=== PATIENT | female | born 1940 | race Caucasian/White ===

== ENCOUNTER 2018-06-14 05:54 | Day surgery (SDC) | payer MEDICARE, OTHER ==
[2018-06-14] MEDS ORDERED: DIPRIVAN 200 MG/20 ML IV ONE (05:55)
[2018-06-14] MEDS ORDERED: Ketamine HCl 50 MG/ML IJ ONE (05:55)
[2018-06-14] MEDS ORDERED: Lactated Ringers 1,000 ML IV SCH (06:30)
[2018-06-14] MEDS ORDERED: Lactated Ringers 1,000 ML IV ONE (07:36)
[2018-06-14 09:11] VITALS: O2SAT 99
[2018-06-14 09:15] VITALS: BP 154/63; PULSE 63
--- NOTE | 2018-06-14 12:57 | OP ---
SURGERY DATE/TIME: 06/14/2018 0723 PREOPERATIVE DIAGNOSIS: Screening exam. POSTOPERATIVE DIAGNOSIS: Normal colon. PROCEDURE: Colonoscopy. SURGEON: Dr. Ward. ANESTHESIA: MAC. Medications given by anesthesia department. HISTORY: The patient is a 77 year-old white female presenting now for colonoscopy. It has been ten years since her previous examination. She was reappraised of the risks of the procedure including the risk of perforation, phlebitis, untoward reaction to medication, bleeding and missed lesions. The patient verbalized her understanding and desired to have the procedure performed. DESCRIPTION OF PROCEDURE: The patient was given the medications by the anesthesia department. She had continuous pulse oximetry, ECG monitoring, intermittent blood pressure monitoring and tidal CO2 monitoring during the examination. She was placed in the left lateral decubitus position. A digital rectal examination was performed and revealed normal anal sphincter tone and no masses. The flexible Olympus pediatric colonoscope was used to intubate the rectum. A view of the colon was developed sequentially to the cecum. Upon insertion and withdrawal, including a retroflex view in the rectum, no mucosal lesions were encountered. The scope was removed from the patient who tolerated the procedure well and was sent back to OP recovery in good condition. The prep was noted to be fair to good.
== END 2018-06-14 09:00 | disposition home or self-care (01) ==
LOC: SDC 05:54
PROVIDERS: ATTEND Family Medicine
DX: Z12.11 Encounter for screening for malignant neoplasm of colon (principal)
CPT/HCPCS: 99100; J2704

== ENCOUNTER 2020-01-12 15:31 | Emergency (ER) | payer OTHER, MEDICARE ==
--- NOTE | 2020-01-12 16:23 | XRAY ---
Indication: Right neck pain following fall. Multiple contiguous axial images obtained through the cervical spine. Sagittal and coronal reformatted images obtained. Comparison: None Axial images negative for acute fracture, suspicious for lesions, or spinal canal stenosis. Minimal C4-C6 degenerative endplate spurring. Sagittal and coronal reformatted images demonstrates minimal lordotic straightening and mild C4-C6 disc space narrowing. No acute compression fracture, subluxation, or jumped facet. Normal appearing craniocervical junction. Visualized noncontrasted soft tissues demonstrates minimal bilateral carotid calcifications. Lung apices unremarkable. Impression: 1. Negative acute fracture/subluxation. 2. C4-C6 degenerative changes.
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
--- NOTE | 2020-01-12 16:26 | XRAY ---
Indication: Pain following fall. Multiple contiguous axial images obtained through the head without contrast. Comparison: December 24, 2015. There is age-appropriate global atrophy and minimal periventricular degenerative micro-ischemia bilaterally. New finding 9mm focus old infarct left mid colon radiata and old lacunar infarct posterior left basal ganglia. No acute intracranial hemorrhage, abnormal extra-axial fluid collection, or mass effect. Fourth ventricle is midline without hydrocephalus. Aragon-white matter differentiation preserved. Bony calvarium intact. Visualized paranasal sinuses and master cells are clear. Impression: 1. Atrophy and degenerative micro-ischemia within normal limits for patient's age. 2. New findings small old infarct left colon radiata and old lacunar infarct left basal ganglia. 3. No acute intracranial abnormalities.
--- NOTE | 2020-01-12 16:50 | XRAY ---
Indication: Pain following fall. Comparison: None 3 view right knee demonstrates tiny superior patella heterotopic ossification either degenerative versus old injury. No other bony, articular, or soft tissue abnormalities.
--- NOTE | 2020-01-12 16:50 | XRAY ---
Indication: Pain following fall. Comparison: None 3 view left hand demonstrates mild degenerative changes all IP joints and 1.7 mm soft tissue calcification/granuloma adjacent to mid 1st metacarpal. No other bony, articular, or soft tissue abnormalities.
--- NOTE | 2020-01-12 16:52 | XRAY ---
Indication: Pain following fall. Comparison: None 3 view right hand demonstrates moderate/advanced degenerative changes 1st IP joint. No other bony, articular, or soft tissue abnormalities.
[2020-01-12 17:10] VITALS: BP 139/78; PULSE 58
[2020-01-12 19:11] VITALS: O2SAT 97
== END 2020-01-12 17:16 | disposition home or self-care (01) ==
LOC: ED 15:31
DX: S16.1XXA Strain of muscle, fascia and tendon at neck level, initial encounter (principal); S80.02XA Contusion of left knee, initial encounter; S80.01XA Contusion of right knee, initial encounter; S60.222A Contusion of left hand, initial encounter; S60.221A Contusion of right hand, initial encounter; R51.9 Headache, unspecified; M54.2 Cervicalgia; S80.211A Abrasion, right knee, initial encounter; W22.8XXA Striking against or struck by other objects, initial encounter; Y93.01 Activity, walking, marching and hiking; Y92.481 Parking lot as the place of occurrence of the external cause
CPT/HCPCS: 70450; 72125; 73130; 73562; 99284

== ENCOUNTER 2020-09-25 22:14 | Emergency (ER) | payer MEDICARE, OTHER ==
--- NOTE | 2020-09-25 22:19 | ERPHSYRPT ---
- History of Present Illness Time Seen by Provider: 09/25/20 22:19 Source: patient, EMS Exam Limitations: clinical condition Physician History: This is a 79-year-old white female who had back surgery recently was placed on narcotic pain medicine in the postoperative period. Patient has not had a bowel movement in several days. It is felt that her constipation is secondary to narcotic use. She is taking her medication as prescribed. However, in the last 3 days she felt rectal and perianal pain and pressure and stopped taking her narcotics. She has not been on her narcotics in the last 3 days. She has no nausea vomiting. She has no abdominal pain. She has been taking Dulcolax oral tablets and has had fleets suppository use earlier today. Severity: moderate Associated Symptoms: other (Constipation), No nausea, No vomiting, No abdominal pain, No shortness of breath, No chest pain Allergies/Adverse Reactions: acetaminophen [From Vicodin] Adverse Reaction (Mild, Verified 09/25/20 22:16) Vomiting codeine Adverse Reaction (Mild, Verified 09/25/20 22:16) Vomiting hydrocodone bitartrate [From Vicodin] Adverse Reaction (Mild, Verified 09/25/20 22:16) Vomiting Home Medications: Amlodipine Besylate [Norvasc] 2.5 mg PO QHS 05/31/18 [History] Cetirizine HCl [Zyrtec] 10 mg PO DAILY 05/31/18 [History] Clopidogrel Bisulfate 75 mg [PLAVIX 75 MG Tablet] 75 mg PO DAILY 05/31/18 [History] Levothyroxine Sodium 100 Mcg [Synthroid 100 Mcg] 100 mcg PO DAILY 05/31/18 [History] Irbesartan 1 tab PO DAILY 01/12/20 [History] Hx Tetanus, Diphtheria Vaccination/Date Given: No Hx Influenza Vaccination/Date Given: Yes Hx Pneumococcal Vaccination/Date Given: No Travel Risk - International Travel Have you traveled outside of the country in past 3 weeks: No - Coronavirus Screening Are you exhibiting any of the following symptoms?: No Close contact with a COVID-19 positive Pt in past 14-21 Days: No - Review of Systems Constitutional: No Symptoms Eyes: No Symptoms Ears, Nose, & Throat: No Symptoms Respiratory: Stridor Cardiac: No Symptoms Abdominal/Gastrointestinal: Constipation, No Abdominal Pain, No Nausea, No Vomiting, No Diarrhea Genitourinary Symptoms: No Symptoms Musculoskeletal: No Symptoms Skin: No Symptoms Neurological: No Symptoms Psychological: No Symptoms Endocrine: No Symptoms Hematologic/Lymphatic: No Symptoms Immunological/Allergic: No Symptoms All Other Systems: Reviewed and Negative - Past Medical History Pertinent Past Medical History: Yes Neurological History: Peripheral Neuropathy, Stroke ENT History: Cataracts Cardiac History: Hypertension Respiratory History: No Pertinent History Endocrine Medical History: Hypothyroidism Musculoskeletal History: Osteoarthritis GI Medical History: GERD History: No Pertinent History Psycho-Social History: No Pertinent History Female Reproductive Disorders: No Pertinent History Other Medical History: CVA WITH R SIDE EFFECT IN 04/23/2018, HTN, BACK SURGERY [address] MARTINEZ. PT NOTES SOMETHING WAS DONE TO l4-5, BUT NOT SURE WHAT. - Past Surgical History Past Surgical History: Yes Neuro Surgical History: No Pertinent History Cardiac: No Pertinent History Respiratory: No Pertinent History Gastrointestinal: No Pertinent History Genitourinary: No Pertinent History Musculoskeletal: Orthopedic Surgery Female Surgical History: Hysterectomy Other Surgical History: Back Surgery. Carpal tunnel. Rotator Cuff surgery - Social History Smoking Status: Never smoker Exposure to second hand smoke: No Alcohol Use: None Drug Use: none Patient Lives Alone: Yes Significant Family History: no pertinent family hx - Nursing Vital Signs Nursing Vital Signs: Initial Vital Signs Temperature 98 F 09/25/20 22:16 Pulse Rate 56 L 09/25/20 22:16 Respiratory Rate 16 09/25/20 22:16 Blood Pressure 111/55 09/25/20 22:16 O2 Sat by Pulse Oximetry 99 09/25/20 22:16 Pain Scale Pain Intensity 10 - Physical Exam General Appearance: mild distress, alert, anxiety Eye Exam: PERRL/EOMI, eyes nml inspection Ears, Nose, Throat Exam: normal ENT inspection, moist mucous membranes Neck Exam: normal inspection, non-tender, supple, full range of motion Respiratory Exam: airway intact, No chest tenderness, No respiratory distress Cardiovascular Exam: regular rate/rhythm, normal heart sounds, normal peripheral pulses Gastrointestinal/Abdomen Exam: soft, normal bowel sounds, No tenderness Pelvic Exam: not done Rectal Exam: other (No digital rectal exam performed at this time. There are swollen external hemorrhoids present.) Extremity Exam: normal inspection, normal range of motion, pelvis stable Neurologic Exam: alert, oriented x 3, cooperative, sat tutor II-XII nml as tested, normal mood/affect Skin Exam: normal color, warm, dry Lymphatic Exam: No adenopathy SpO2 Interpretation: normal O2 Delivery: Room Air Ordered Tests: Active Orders 24 hr Category Date Time Status Enema STAT Care 09/25/20 23:06 Active - Progress Progress: improved, pain not gone completely Progress Note: 09/26/20 00:33 Medical decision making: Patient had minimal response to the soapsuds enema. Digital disimpaction was performed and large amount of hard stool was removed followed by softer stool. Patient commented that her pain and pressure in the rectal area was significantly less. Counseled pt/family regarding: diagnosis, need for follow-up, rad results - Departure Departure Disposition: Home Clinical Impression: Fecal impaction in rectum Condition: Stable Critical Care Time: No Referrals: MADISYN FIERRO [Primary Care Provider] - Additional Instructions: Drink plenty of fluids. Be as active as possible. This morning, when you get home, drink the full bottle of magnesium citrate orally and rapidly. Wait approximately half hour to 45 minutes and give yourself a fleets enema rectally. Purchase the product MiraLAX that is [id number] and follow the directions. Follow-up with your primary care doctor for bowel hygiene regimen. Avoid narcotic pain medication.
[2020-09-26 00:32] VITALS: BP 124/73; PULSE 55; O2SAT 100
[2020-09-26] MEDS ORDERED: CITROMA 296 ML ONE (00:34)
[2020-09-26] MEDS ORDERED: CITROMA 296 ML PO ONE (00:35)
== END 2020-09-26 00:47 | disposition home or self-care (01) ==
LOC: ED 22:14
DX: K56.41 Fecal impaction (principal)
CPT/HCPCS: 99283; A9270-GY

== ENCOUNTER 2022-08-29 12:54 | Emergency (ER) | payer MEDICARE, OTHER ==
--- NOTE | 2022-08-29 12:59 | ERPHSYRPT ---
- History of Present Illness Time Seen by Provider: 08/29/22 12:59 Source: patient Exam Limitations: no limitations Physician History: This is an 81-year-old white female patient of Dr. Ward who presents with dizziness and nausea when she woke up this morning. Symptoms are still present. 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 Patient is able to ambulate. She has had no changes in her vision. She has had no changes in her speech. She has no abdominal pain. Patient has a history of hypertension, hypothyroidism, peripheral neuropathy and gastroesophageal reflux disease. Patient denies chest pain and she denies shortness of breath. Patient is on Plavix Timing/Duration: today Severity: mild Character of Deficits: none Deficits: no difficulties Baseline/Normal Cognition: alert oriented x 3 Current Cognition: alert oriented x 3 Baseline Gait: walks w/o assistance Associated Symptoms: nausea, other, No loss of consciousness, No vomiting, No chest pain Allergies/Adverse Reactions: acetaminophen [From Vicodin] Adverse Reaction (Mild, Verified 08/29/22 13:40) Vomiting codeine Adverse Reaction (Mild, Verified 08/29/22 13:40) Vomiting hydrocodone bitartrate [From Vicodin] Adverse Reaction (Mild, Verified 08/29/22 13:40) Vomiting Home Medications: Cetirizine HCl [Zyrtec] 10 mg PO DAILY 05/31/18 [History] Clopidogrel Bisulfate [PLAVIX Tablet] 75 mg PO DAILY 05/31/18 [History] Levothyroxine Sodium 100 Mcg [Synthroid 100 Mcg] 75 mcg PO DAILY 05/31/18 [History] Irbesartan 30 mg PO DAILY 01/12/20 [History] Alpha Lipoic Acid 300 mg PO DAILY 08/29/22 [History] Aspirin [Low Dose Aspirin EC] 81 mg PO 3XW 08/29/22 [History] Biotin 1 tab PO DAILY 08/29/22 [History] Calcium Carbonate [Calcium] 650 mg PO DAILY 08/29/22 [History] Magnesium Oxide [Magnesium] 500 mg PO DAILY 08/29/22 [History] PANTOPRAZOLE 40 mg Tablet [Protonix 40MG Tablet] 40 mg PO BID 08/29/22 [History] Vit C/E/Zn/Coppr/Lutein/Zeaxan [Preservision Areds 2 Chew Tab] 1 tab PO BID 08/29/22 [History] Hx Tetanus, Diphtheria Vaccination/Date Given: No Hx Influenza Vaccination/Date Given: Yes Hx Pneumococcal Vaccination/Date Given: No Travel Risk - International Travel Have you traveled outside of the country in past 3 weeks: No - Coronavirus Screening Are you exhibiting any of the following symptoms?: No Close contact with a COVID-19 positive Pt in past 14-21 Days: No - Vaccine Status Have you recieved a Covid-19 vaccination: Yes 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: [employer] - Vaccination Dates Date of 2cond Vaccination (if applicable): 06/10 - Review of Systems Constitutional: No Symptoms Eyes: No Symptoms Ears, Nose, & Throat: No Symptoms Respiratory: No Symptoms Cardiac: No Symptoms Abdominal/Gastrointestinal: Nausea, No Abdominal Pain, No Vomiting, No Diarrhea, No Constipation Genitourinary Symptoms: No Symptoms Musculoskeletal: No Symptoms Skin: No Symptoms Neurological: Dizziness Psychological: No Symptoms Endocrine: No Symptoms Hematologic/Lymphatic: No Symptoms Immunological/Allergic: No Symptoms All Other Systems: Reviewed and Negative - Past Medical History Pertinent Past Medical History: Yes Neurological History: Peripheral Neuropathy, Stroke ENT History: Cataracts Cardiac History: Hypertension Respiratory History: Asthma Endocrine Medical History: No Pertinent History Musculoskeletal History: No Pertinent History GI Medical History: GERD History: No Pertinent History Psycho-Social History: No Pertinent History Female Reproductive Disorders: No Pertinent History Other Medical History: CVA WITH R SIDE INVOLVEMENT 3 YEARS AGO. - Past Surgical History Past Surgical History: Yes Neuro Surgical History: No Pertinent History Cardiac: No Pertinent History Respiratory: No Pertinent History Gastrointestinal: No Pertinent History Genitourinary: No Pertinent History Musculoskeletal: Orthopedic Surgery Female Surgical History: Hysterectomy Other Surgical History: Back Surgery. Carpal tunnel. Rotator Cuff surgery - Social History Smoking Status: Never smoker Exposure to second hand smoke: No Alcohol Use: None Drug Use: none Patient Lives Alone: Yes Significant Family History: no pertinent family hx - Nursing Vital Signs Nursing Vital Signs: Initial Vital Signs Blood Pressure 163/79 08/29/22 13:03 O2 Sat by Pulse Oximetry 98 08/29/22 13:03 Pain Scale Pain Intensity 0 - Vinicius Coma Scale Best Eye Response ([place]): (4) open spontaneously Best Verbal Response ([place]): (5) oriented Best Motor Response ([place]): (6) obeys commands Vinicius Total: 15 - Physical Exam General Appearance: no apparent distress, alert, anxiety Eye Exam: bilateral eye: normal inspection, PERRL, EOMI Ears, Nose, Throat Exam: normal ENT inspection, moist mucous membranes Neck Exam: normal inspection, non-tender, supple, full range of motion Respiratory: normal breath sounds, lungs clear, airway intact, No chest tenderness, No respiratory distress Cardiovascular: regular rate/rhythm, normal heart sounds, normal peripheral pulses Gastrointestinal: soft, normal bowel sounds, No tenderness Pelvic Exam: not done Rectal Exam: not done Back Exam: normal inspection, normal range of motion, No CVA tenderness, No vertebral tenderness Extremity Exam: normal inspection, normal range of motion, pelvis stable Mental Status: alert, oriented x 3, 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 Exam: normal hearing, normal speech, PERRL, tongue midline Coordination/Gait: normal finger to nose, normal gait, normal cerebellar function Motor/Sensory: no motor deficit, no sensory deficit, no pronator drift Skin Exam: normal color, warm, dry SpO2 Interpretation: normal O2 Delivery: Room Air - Course Nursing assessment & vital signs reviewed: Yes Ordered Tests: Active Orders 24 hr Category Date Time Status Senior Project Controls Specialist STAT Care 08/29/22 13:08 Active EKG-ER Only STAT Care 08/29/22 13:07 Active IV Insertion STAT Care 08/29/22 13:07 Active NPO (ED) STAT Care 08/29/22 13:07 Active Pulse Oximetry (ED) STAT Care 08/29/22 13:07 Active HEAD WITHOUT CONTRAST [CT] Stat Exams 08/29/22 13:08 Completed CBC W DIFF Stat Lab 08/29/22 13:34 Completed CMP Stat Lab 08/29/22 13:34 Completed T4 (Thyroxine) Stat Lab 08/29/22 13:34 Completed TROPONIN Q4H Lab 08/29/22 13:34 Completed TROPONIN Q4H Lab 08/29/22 17:15 Ordered TROPONIN Q4H Lab 08/29/22 21:15 Ordered TSH, 3RD Generation Stat Lab 08/29/22 13:34 Completed UA W/RFX UR CULTURE Stat Lab 08/29/22 12:52 Completed Medication Summary Discontinued Medications Generic Name Dose Route Start Last Admin Trade Name Freq PRN Reason Stop Dose Admin Ondansetron HCl 4 mg 08/29/22 13:08 08/29/22 13:35 Ondansetron Hcl 4 Mg/2 Ml Vial IV 08/29/22 13:09 4 mg STAT ONE Administration Ondansetron HCl Confirm 08/29/22 13:33 Ondansetron Hcl 4 Mg/2 Ml Vial Administered 08/29/22 13:34 Dose 4 mg .ROUTE .STK-MED ONE Lab/Rad Data: Laboratory Result Diagrams 08/29/22 13:34 08/29/22 13:34 Laboratory Results 08/29/22 08/29/22 08/29/22 Range/Units 13:34 13:34 13:34 WBC 6.5 (4.0-10.5) x10^3/uL RBC 4.40 (4.1-5.4) x10^6/uL Hgb 13.6 (12.0-16.0) g/dL Hct 41.8 (35-47) % MCV 95.0 (78-100) fL MCH 30.9 (26-32) pg MCHC 32.5 (32-36) g/dL RDW 13.0 (11.5-14.0) % Plt Count 241 (150-450) x10^3/uL MPV 11.6 H (7.5-11.0) fL Gran % 58.1 (36.0-66.0) % Immature Gran % (Auto) 0.5 H (0.00-0.4) % Nucleat RBC Rel Count 0.0 (0.00-0.1) % Eos # (Auto) 0.51 H (0-0.5) x10^3/uL Immature Gran # (Auto) 0.03 (0.00-0.03) x10^3u/L Absolute Lymphs (auto) 1.48 (1.0-4.6) x10^3/uL Absolute Monos (auto) 0.66 (0.0-1.3) x10^3/uL Absolute Nucleated RBC 0.00 (0.00-0.01) x10^3u/L Lymphocytes % 22.7 L (24.0-44.0) % Monocytes % 10.1 (0.0-12.0) % Eosinophils % 7.8 H (0.00-5.0) % Basophils % 0.8 (0.0-0.4) % Absolute Granulocytes 3.78 (1.4-6.9) x10^3/uL Basophils # 0.05 (0-0.4) x10^3/uL Sodium 141 (137-145) mmol/L Potassium 4.0 (3.5-5.1) mmol/L Chloride 101 (98-107) mmol/L Carbon Dioxide 29 (22-30) mmol/L Anion Gap 14.8 (5-15) MEQ/L BUN 18 H (7-17) mg/dL Creatinine 1.01 (0.52-1.04) mg/dL Estimated GFR 56.1 ML/MIN Glucose 86 (74-106) mg/dL Calcium 9.5 (8.4-10.2) mg/dL Total Bilirubin 0.80 (0.2-1.3) mg/dL AST 26 (14-36) U/L ALT 15 (0-35) U/L Alkaline Phosphatase 68 (38-126) U/L Troponin I < 0.012 (0.000-0.034) ng/mL Serum Total Protein 7.3 (6.3-8.2) g/dL Albumin 4.4 (3.5-5.0) g/dL Thyroxine (T4) 8.22 (5.53-10.96) ug/dL TSH 3rd Generation 3.960 (0.47-4.68) mIU/L Urine Color (Yellow) Urine Appearance (Clear) Urine pH (4.6-8.0) Ur Specific [place] (1.005-1.030) Urine Protein (Negative) Urine Glucose (UA) (Negative) mg/dL Urine Ketones (Negative) Urine Blood (Negative) Urine Nitrite (Negative) Urine Bilirubin (Negative) Urine Urobilinogen (0.2) mg/dL Ur Leukocyte Esterase (Negative) U Hyaline Cast (Auto) (0-2) /LPF Urine Microscopic RBC (0-5) /HPF Urine Microscopic WBC (0-5) /HPF Ur Epithelial Cells (None Seen) /HPF Urine Bacteria (None Seen) /HPF Urine Culture Reflexed (NO) 08/29/22 Range/Units 12:52 WBC (4.0-10.5) x10^3/uL RBC (4.1-5.4) x10^6/uL Hgb (12.0-16.0) g/dL Hct (35-47) % MCV (78-100) fL MCH (26-32) pg MCHC (32-36) g/dL RDW (11.5-14.0) % Plt Count (150-450) x10^3/uL MPV (7.5-11.0) fL Gran % (36.0-66.0) % Immature Gran % (Auto) (0.00-0.4) % Nucleat RBC Rel Count (0.00-0.1) % Eos # (Auto) (0-0.5) x10^3/uL Immature Gran # (Auto) (0.00-0.03) x10^3u/L Absolute Lymphs (auto) (1.0-4.6) x10^3/uL Absolute Monos (auto) (0.0-1.3) x10^3/uL Absolute Nucleated RBC (0.00-0.01) x10^3u/L Lymphocytes % (24.0-44.0) % Monocytes % (0.0-12.0) % Eosinophils % (0.00-5.0) % Basophils % (0.0-0.4) % Absolute Granulocytes (1.4-6.9) x10^3/uL Basophils # (0-0.4) x10^3/uL Sodium (137-145) mmol/L Potassium (3.5-5.1) mmol/L Chloride (98-107) mmol/L Carbon Dioxide (22-30) mmol/L Anion Gap (5-15) MEQ/L BUN (7-17) mg/dL Creatinine (0.52-1.04) mg/dL Estimated GFR ML/MIN Glucose (74-106) mg/dL Calcium (8.4-10.2) mg/dL Total Bilirubin (0.2-1.3) mg/dL AST (14-36) U/L ALT (0-35) U/L Alkaline Phosphatase (38-126) U/L Troponin I (0.000-0.034) ng/mL Serum Total Protein (6.3-8.2) g/dL Albumin (3.5-5.0) g/dL Thyroxine (T4) (5.53-10.96) ug/dL TSH 3rd Generation (0.47-4.68) mIU/L Urine Color Yellow (Yellow) Urine Appearance Clear (Clear) Urine pH 7.5 (4.6-8.0) Ur Specific [place] <=1.005 (1.005-1.030) Urine Protein Negative (Negative) Urine Glucose (UA) Negative (Negative) mg/dL Urine Ketones Negative (Negative) Urine Blood Negative (Negative) Urine Nitrite Negative (Negative) Urine Bilirubin Negative (Negative) Urine Urobilinogen 0.2 (0.2) mg/dL Ur Leukocyte Esterase Small A (Negative) U Hyaline Cast (Auto) NONE SEEN (0-2) /LPF Urine Microscopic RBC 0-2 (0-5) /HPF Urine Microscopic WBC 0-2 (0-5) /HPF Ur Epithelial Cells None Seen (None Seen) /HPF Urine Bacteria None Seen (None Seen) /HPF Urine Culture Reflexed NO (NO) - Progress Progress: improved, re-examined Progress Note: 08/29/22 14:30 CAT scan of the head without contrast shows a 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 The CAT scan was interpreted by the radiologist and I reviewed the impression. This patient's medical issue is 1 of moderate complexity. The level of complexity and the work-up performed is based on review of the patient's past medical history, review of the patient's medication list, review of the patient's drug allergy list, history of present illness and physical findings on examination. The work-up performed includes a CBC, CMP, troponin level, twelve-lead EKG, urinalysis, T4, TSH and CT scan of the head without contrast. I reviewed the impression of the CAT scan of the head interpreted by the radiologist. I am awaiting the remainder of the work-up results. Counseled pt/family regarding: lab results, diagnosis, need for follow-up, rad results Medical Desision Making - Diagnostic Testing Diagnostic test were ordered, analyzed, and reviewed by me: Yes Radiological Interpretation: Reviewed by me, Teleradiologist Report - Risk of complications The pt has a mod risk of morbidity or mortality based on: Need for prescription drug management - Departure Departure Disposition: Home Clinical Impression: Dizziness, Nausea Condition: Stable Critical Care Time: No Referrals: MADISYN WARD [Primary Care Provider] - Follow up/PCP as directed Additional Instructions: Drink plenty of clear liquids. Avoid fatty greasy spicy foods. Take your medication as prescribed. Call your primary care provider today to make arrangements for follow-up appointment the next 3 days. Prescriptions: Ondansetron ODT 4 MG [Zofran Odt 4 mg] 4 mg PO Q6H PRN PRN #10 tablet PRN Reason: Vomiting Meclizine HCl 25 mg [Antivert 25 mg] 25 mg PO Q8H PRN #10 tablet PRN Reason: Dizziness
[2022-08-29] MEDS ORDERED: Zofran 4 MG/2 ML VIAL IV ONE (13:08)
[2022-08-29] MEDS ORDERED: Zofran 4 MG/2 ML VIAL ONE (13:33)
--- NOTE | 2022-08-29 13:36 | XRAY ---
Indication: Dizziness and nausea. Multiple contiguous axial images obtained through the head without contrast. Comparison: January 12, 2020 Again age-appropriate global atrophy and minimal periventricular degenerative micro-ischemia. Again remote lacunar infarcts left basal ganglia and left colon radiata. No acute intracranial hemorrhage, abnormal extra-axial fluid collection, or mass effect. Fourth ventricle is midline without hydrocephalus. [place]agon-white matter differentiation preserved. Bony calvarium intact. Visualized paranasal sinuses and mastoid air cells are clear. Impression: Continued nonacute senile brain with again remote left cerebral lacunar infarcts.
[2022-08-29 13:44] LABS: Absolute Neutrophil Ct (ANC) 3.78 x10^3/uL (1.4-6.9); BASOPHIL % 0.8 % (0.0-0.4); Basophil (Absolute #) 0.05 x10^3/uL (0-0.4); Eosinophil % 7.8 % (0.00-5.0); Eosinophil (Absolute #) 0.51 x10^3/uL (0-0.5); Hematocrit 41.8 % (35-47); Hemoglobin 13.6 g/dL (12.0-16.0); IMMATURE GRAN # 0.03 x10^3u/L (0.00-0.03); IMMATURE GRAN % 0.5 % (0.00-0.4); Lymphocyte (Absolute #) 1.48 x10^3/uL (1.0-4.6); Lymphocytes % 22.7 % (24.0-44.0); Mean Corpuscular Hemoglobin 30.9 pg (26-32); Mean Corpuscular Hgb Concent. 32.5 g/dL (32-36); Mean Platelet Volume 11.6 fL (7.5-11.0); Monocyte (Absolute #) 0.66 x10^3/uL (0.0-1.3); Monocytes % 10.1 % (0.0-12.0); Neutrophil % 58.1 % (36.0-66.0); Platelet Count 241 x10^3/uL (150-450); White Blood Count 6.5 x10^3/uL (4.0-10.5)
[2022-08-29 14:02] LABS: ADD URINE CULTURE? NO (NO); Appearance Clear (Clear); Bacteria None Seen /HPF (None Seen); Bilirubin Negative (Negative); Blood Negative (Negative); Epithelial Cells None Seen /HPF (None Seen); Glucose, Urine Negative (Negative); Hyaline Casts NONE SEEN /LPF (0-2); Ketones Negative (Negative); Leukocyte Esterase Small (Negative); Nitrite Negative (Negative); Ph 7.5 (4.6-8.0); Protein,Urine Dip Negative (Negative); RBC 0-2 /HPF (0-5); Specific Gravity <=1.005 (1.005-1.030); Urobilinogen 0.2 mg/dL (0.2); WBC 0-2 /HPF (0-5)
[2022-08-29 14:34] LABS: ALBUMIN 4.4 g/dL (3.5-5.0); ANION GAP 14.8 MEQ/L (5-15); BILIRUBIN,TOTAL 0.8 mg/dL (0.2-1.3); Calcium 9.5 mg/dL (8.4-10.2); Creatinine 1 1.01 mg/dL (0.52-1.04); EST GLOMERULAR FILTRATION RATE 56.1 ML/MIN; T4 (Thyroxine) 8.22 ug/dL (5.53-10.96); TSH, 3RD Generation 3.96 mIU/L (0.47-4.68); Total Protein 7.3 g/dL (6.3-8.2)
[2022-08-29 14:52] VITALS: BP 159/95; PULSE 55; O2SAT 95
== END 2022-08-29 15:04 | disposition home or self-care (01) ==
LOC: ED 12:54
DX: R42 Dizziness and giddiness (principal); R11.0 Nausea; I10 Essential (primary) hypertension; Z79.02 Long term (current) use of antithrombotics/antiplatelets; Z79.899 Other long term (current) drug therapy
CPT/HCPCS: 36000; 36415; 70450; 80053; 81001; 84436; 84443; 84484; 85025; 93005; 93041; 94760; 96374; 99284; J2405